=== PATIENT | male | born 2000 | race Caucasian/White ===

== ENCOUNTER 2021-04-06 18:48 | Emergency (ER) | payer OTHER ==
[~2021-04-06] VITALS: Ht 180.3 cm; Wt 106.6 kg
[~2021-04-06 18:48] MED LIST: ALBU0.0952
[2021-04-06 19:08] VITALS: BP 140/79
--- NOTE | 2021-04-06 19:16 | NUR ---
MARYAN NOVEL SAMPLE COLLECTED AND WALKED TO LAB
[2021-04-06 21:30] VITALS: BP 119/80
--- NOTE | 2021-04-06 21:30 | NUR ---
Patient discharged with v/s stable. Written and verbal after care instructions given and explained. Patient verbalized understanding. Ambulatory with steady gait. All questions addressed prior to discharge. Advised to follow up with PMD.
== END 2021-04-06 21:30 | disposition home or self-care (01) ==
LOC: MED 18:48
DX: R05 Cough (principal); Z20.822 Contact with and (suspected) exposure to COVID-19
CPT/HCPCS: 99283; U0003

== ENCOUNTER 2023-03-08 21:44 | Emergency (ER) | payer OTHER ==
[~2023-03-08] VITALS: Ht 182.9 cm; Wt 105.2 kg
[2023-03-08 21:58] VITALS: BP 130/79; PULSE 124; RESP 17; TEMP 98.2; O2SAT 95
== END 2023-03-08 22:35 ==
LOC: MED 21:44
DX: R03.0 Elevated blood-pressure reading, without diagnosis of hypertension (principal)
CPT/HCPCS: 99283